=== PATIENT | female | born 1980 | race Caucasian/White ===

== ENCOUNTER 2019-03-08 10:30 | Emergency (ER) | payer OTHER, MEDICAID ==
[~2019-03-08] VITALS: Ht 157.5 cm; Wt 87.8 kg
--- NOTE | 2019-03-08 10:51 | NUR ---
to ed from home w/ . c section 02/26. mc out 03/01. R side of incision small dehiscence. yellow fatty tissue under. pt reports drainage w/ foul odor. no drainage noted. sts some abd pain RLQ radiating into side. 06/20 now, declines pain med offer by PA. denies fevers/nausea. sx at [facility]. awaiting labs. call de souza in reach. as
[2019-03-08] MEDS ORDERED: MORPHINE SULFATE 4 MG/ML, 1ML IVPush PRN (11:00)
[2019-03-08] MEDS ORDERED: SODIUM CHLORIDE FLUSH 10ML SYR IVF ONE (11:00)
[2019-03-08] MEDS ORDERED: ONDANSETRON 2MG/ML, 2ML IVPush ONE (11:00)
[2019-03-08 11:02] LABS: BASOPHILS # (AUTO) 0.03 x10^3/uL (0-0.1); BASOPHILS % (AUTO) 0 % (0-1); EOSINOPHILS # (AUTO) 0.32 x10^3/uL (0-0.4); EOSINOPHILS % (AUTO) 4 % (1-7); LYMPHOCYTES # (AUTO) 2.26 x10^3/uL (1-3.4); LYMPHOCYTES % (AUTO) 28 % (22-44); MD NO; MEAN CORPUSCULAR HEMOGLOBIN 31.2 pg (27.0-34.8); MEAN CORPUSCULAR HGB CONC 33.1 g/dL (32.4-35.8); MEAN CORPUSCULAR VOLUME 94.4 fL (80-100); MEAN PLATELET VOLUME 7.7 fL (7.4-10.4); MONOCYTES % (AUTO) 6 % (2-9); NEUTROPHILS # (AUTO) 4.94 x10^3/uL (1.8-6.8); NEUTROPHILS % (AUTO) 61 % (42-75); PLATELET COUNT 517 x10^3/uL (130-400); RED BLOOD COUNT 4.12 x10^6/uL (3.82-5.3); RED CELL DISTRIBUTION WIDTH 14.2 % (9.6-15.2)
[2019-03-08 11:11] LABS: ALBUMIN 2.9 g/dL (3.4-5.0); ANION GAP 6 mmol/L (5-15); CALCIUM 8.7 mg/dL (8.5-10.1); CHLORIDE 108 mmol/L (98-107); CREATININE 0.82 mg/dL (0.55-1.02)
--- NOTE | 2019-03-08 11:19 | NUR ---
DOES PT HAVE IV? NEEDED FOR CT EXAM
--- NOTE | 2019-03-08 11:28 | NUR ---
pt refused morphine/zofran. as
[2019-03-08 11:39] VITALS: BP 131/81
[2019-03-08] MEDS ORDERED: OMNIPAQUE 350 MG/ML, 100ML BOTTLE ONE (12:10)
== END 2019-03-08 12:49 | disposition home or self-care (01) ==
LOC: ED 12:15
DX: O90.0 Disruption of cesarean delivery wound (principal); L03.311 Cellulitis of abdominal wall
CPT/HCPCS: 36415; 74177; 80048; 82040; 85025; 99284; Q9967